=== PATIENT | male | born 1985 | race African-American/Black ===

== ENCOUNTER 2019-02-27 03:18 | Emergency (ER) | payer SELFPAY ==
[~2019-02-27] VITALS: Ht 190.5 cm; Wt 95.3 kg
--- OUTSIDE RECORDS SUMMARY | 2019-02-27 03:24 | XMS REPORT ---
Author Author Bernard Adler [facility] Adult Address [address] [place] [address] Care Team Providers Care General Foreman Name Role Phone Bernard Adler Unavailable PROBLEMS Type Condition ICD9-CM Code [id number] Code Onset Dates Condition Status SNOMED Code Problem Post-traumatic stress disorder, unspecified F43.10 Active 06159999 Problem Mental disorder, not otherwise specified F99 Active 22836061 Problem Depression, major, severe recurrence F33.2 Active 23060106 ALLERGIES No Information ENCOUNTERS Encounter Location Date Diagnosis [facility] Adult [address] [place] [address] [phone] February, [facility] Adult [address] [place] [address] [phone] February, [facility] Adult [address] [place] [address] [phone] Jan, [facility] Adult [address] [place] [address] [phone] Jan, [facility] Adult [address] [place] [address] [phone] Dec, [facility] Adult [address] [place] [address] [phone] Dec, [employer] 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 [address] [place] [phone] Dec, Mental disorder, not otherwise specified F99 Intake Services [address] [place] [phone] Dec, Post-traumatic stress disorder, unspecified F43.10 and Major depressive disorder, recurrent episode, severe with anxious distress F33.2 [employer] 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 [address] [place] [phone] Dec, Mental disorder, not otherwise specified F99 [employer] 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 [address] [place] [phone] Dec, [employer] 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 [address] [place] [phone] Dec, IMMUNIZATIONS No Known Immunizations SOCIAL HISTORY Never Assessed REASON FOR VISIT Closing CPRP Referral, Client is moving out of town. CPRP Referral will be closed PLAN OF CARE VITAL SIGNS MEDICATIONS Unknown Medications RESULTS No Results PROCEDURES No Known procedures INSTRUCTIONS MEDICATIONS ADMINISTERED No Known Medications MEDICAL (GENERAL) HISTORY Type Description Date Hospitalization History Psychiatric: [facility]- anxiety and psychosis 12/2017 Hospitalization History Medical: none reported
--- OUTSIDE RECORDS SUMMARY | 2019-02-27 03:24 | XMS REPORT ---
Author Author Zaynab Sullivan [facility] Adult Address [address], [place] [phone] Care Team Providers Care Excelsior Cutter Name Role Phone Zaynab Sullivan Unavailable PROBLEMS ALLERGIES No Information ENCOUNTERS IMMUNIZATIONS No Known Immunizations SOCIAL HISTORY No smoking Hx information available REASON FOR VISIT PLAN OF CARE VITAL SIGNS MEDICATIONS Unknown Medications RESULTS No Results PROCEDURES No Known procedures INSTRUCTIONS MEDICATIONS ADMINISTERED No Known Medications MEDICAL (GENERAL) HISTORY
--- OUTSIDE RECORDS SUMMARY | 2019-02-27 03:24 | XMS REPORT ---
Author Author Bernard Adler Organization [facility] Adult Address [address] [place] [address] Care Team Providers Care General Farm Hand Name Role Phone Bernard Adler Unavailable PROBLEMS Type Condition ICD9-CM Code [id number] Code Onset Dates Condition Status SNOMED Code Problem Post-traumatic stress disorder, unspecified F43.10 Active 31696005 Problem Depression, major, severe recurrence F33.2 Active 75158354 Problem Mental disorder, not otherwise specified F99 Active 84263155 ALLERGIES No Information ENCOUNTERS Encounter Location Date Diagnosis [facility] Adult [address] [place] [phone] Jan, Psychiatric Services [address] [place] [address] [id number] [phone] Jan, [facility] Adult [address] [place] [phone] Jan, [facility] Adult [address] [place] [address] [phone] Dec, [facility] Adult [address] [place] [address] [phone] Dec, 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 [address] [place] [phone] Dec, Mental disorder, not otherwise specified F99 Intake Services [address] [place] [phone] Dec, Post-traumatic stress disorder, unspecified F43.10 and Major depressive disorder, recurrent episode, severe with anxious distress F33.[address] 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 [address] [place] [phone] Dec, Mental disorder, not otherwise specified F99 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 [address] [place] [phone] Dec, 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 [address] [place] [phone] Dec, IMMUNIZATIONS No Known Immunizations SOCIAL HISTORY Never Assessed REASON FOR VISIT Outreach PLAN OF CARE VITAL SIGNS MEDICATIONS Unknown Medications RESULTS No Results PROCEDURES No Known procedures INSTRUCTIONS MEDICATIONS ADMINISTERED No Known Medications MEDICAL (GENERAL) HISTORY Type Description Date Hospitalization History Psychiatric: [facility]- anxiety and psychosis 12/2017 Hospitalization History Medical: none reported
--- OUTSIDE RECORDS SUMMARY | 2019-02-27 03:24 | XMS REPORT ---
Author Author Bari Lam Organization [facility] Address [address] [place] [address] [phone] Care Team Providers Care Hr Payroll Coordinator Name Role Phone Bari Lam Unavailable PROBLEMS Type Condition ICD9-CM Code VFO96-RB Code Onset Dates Condition Status SNOMED Code Problem Mental disorder, not otherwise specified F99 Active 34690104 ALLERGIES No Information ENCOUNTERS Encounter Location Date Diagnosis [facility] Services [address] [place] [address] [id number] [phone] Jan, [facility] Adult [address] [place] [address] [phone] Dec, [facility] Adult [address] [place] [address] [phone] Dec, [facility] [address] [place] [phone] Dec, Mental disorder, not otherwise specified F99 Intake Services [address] [place] [phone] Dec, [facility] [address] [place] [phone] Dec, Mental disorder, not otherwise specified F99 [facility] [address] [place] [phone] Dec, [facility] [address] [place] [phone] Dec, IMMUNIZATIONS No Known Immunizations SOCIAL HISTORY Never Assessed REASON FOR VISIT Case Management-[facility] Hospital Discharge Follow-Up REFERRAL PLAN OF CARE Activity Details Follow Up 1 Week Reason: VITAL SIGNS MEDICATIONS Unknown Medications RESULTS No Results PROCEDURES Procedure Date Ordered Result Body Site CASE MNMT-PARAPROFESS IND 15 MIN December 29, 2017 INSTRUCTIONS MEDICATIONS ADMINISTERED No Known Medications MEDICAL (GENERAL) HISTORY Type Description Date Hospitalization History Psychiatric: When? How many days? Reason? Hospitalization History Medical: When? How many days? Reason?
--- OUTSIDE RECORDS SUMMARY | 2019-02-27 03:25 | XMS REPORT ---
Author Author Bernadine Millard Organization [facility] Address [address] [place] [address] [phone] Care Team Providers Care Pre School Teacher Name Role Phone Bernadine Millard Unavailable PROBLEMS Type Condition ICD9-CM Code [id number] Code Onset Dates Condition Status SNOMED Code Problem Post-traumatic stress disorder, unspecified F43.10 Active 92819195 Problem Depression, major, severe recurrence F33.2 Active 36444462 Problem Mental disorder, not otherwise specified F99 Active 16603914 ALLERGIES No Information ENCOUNTERS Encounter Location Date Diagnosis [facility] Adult [address] [place] [phone] Jan, [facility] [address] [place] [address] [id number] [phone] Jan, [facility] Adult [address] [place] [address] [phone] Jan, [facility] Adult [address] [place] [address] [phone] Dec, [facility] Adult [address] [place] [address] [phone] Dec, Renewals Manager [address] [place] [phone] Dec, Mental disorder, not otherwise specified F99 Intake Services [address] [place] [phone] Dec, Post-traumatic stress disorder, unspecified F43.10 and Major depressive disorder, recurrent episode, severe with anxious distress F33.2 Renewals Manager [address] [place] [phone] Dec, Mental disorder, not otherwise specified F99 Renewals Manager [address] [place] [phone] Dec, Renewals Manager [address] [place] [phone] Dec, IMMUNIZATIONS No Known Immunizations SOCIAL HISTORY Never Assessed REASON FOR VISIT intake into [facility]- 2:30-3:30 pm - (hospital discharge)- face to face intervention PLAN OF CARE Activity Details Follow Up prn Reason: VITAL SIGNS MEDICATIONS Unknown Medications RESULTS No Results PROCEDURES Procedure Date Ordered Result Body Site BEHAVIORAL HEALTH ASSESSMENT January 03, 2018 INSTRUCTIONS MEDICATIONS ADMINISTERED No Known Medications MEDICAL (GENERAL) HISTORY Type Description Date Hospitalization History [facility]iatric[facility]- anxiety and psychosis 12/2017 Hospitalization History Medical: none reported
--- OUTSIDE RECORDS SUMMARY | 2019-02-27 03:25 | XMS REPORT ---
Author Author Bernard Adler Organization [facility] Adult Address [address] [place] [address] Care Team Providers Care Sole Molder Name Role Phone Bernard Adler Unavailable PROBLEMS Type Condition ICD9-CM Code KEA73-EA Code Onset Dates Condition Status SNOMED Code Problem Post-traumatic stress disorder, unspecified F43.10 Active 69031253 Problem Mental disorder, not otherwise specified F99 Active 64325374 Problem Depression, major, severe recurrence F33.2 Active 39218094 ALLERGIES No Information ENCOUNTERS Encounter Location Date Diagnosis [facility] Adult [address] [place] [phone] Jan, [facility] Adult [address] [place] [address] [phone] Jan, [facility] Adult [address] [place] [address] [phone] Dec, [facility] Adult [address] [place] [address] [phone] Dec, Screening Specialist [address] [place] [phone] Dec, Mental disorder, not otherwise specified F99 Intake Services [address] [place] [phone] Dec, Post-traumatic stress disorder, unspecified F43.10 and Major depressive disorder, recurrent episode, severe with anxious distress F33.2 Screening Specialist [address] [place] [phone] Dec, Mental disorder, not otherwise specified F99 Screening Specialist [address] [place] [phone] Dec, Screening Specialist [address] [place] [phone] Dec, IMMUNIZATIONS No Known Immunizations SOCIAL HISTORY Never Assessed REASON FOR VISIT Outreach PLAN OF CARE VITAL SIGNS MEDICATIONS Unknown Medications RESULTS No Results PROCEDURES No Known procedures INSTRUCTIONS MEDICATIONS ADMINISTERED No Known Medications MEDICAL (GENERAL) HISTORY Type Description Date Hospitalization History Psychiatric: [facility] Psychiatric [facility]- anxiety and psychosis 12/2017 Hospitalization History Medical: none reported
--- OUTSIDE RECORDS SUMMARY | 2019-02-27 03:25 | XMS REPORT ---
Author Author Bari Lam Organization [facility] Address [address] [place] [address] [phone] Care Team Providers Care District Plant Supervisor Name Role Phone Bari Lam Unavailable PROBLEMS Type Condition ICD9-CM Code QFV11-DW Code Onset Dates Condition Status SNOMED Code Problem Mental disorder, not otherwise specified F99 Active 82874068 ALLERGIES No Information ENCOUNTERS Encounter Location Date Diagnosis [facility] [address] [place] [address] [id number], [place] [phone] Jan, [facility] Adult [address] [place] [address] [phone] Dec, [facility] Adult [address] [place] [place] [address] [phone] Dec, [facility] [address] [place] [place] [phone] Dec, Mental disorder, not otherwise specified F99 Intake Services [address] [place] [phone] Dec, [facility] [address] [place] [place] [phone] Dec, Mental disorder, not otherwise specified F99 [facility] [address] [place] [place] [phone] Dec, [facility] [address] [place] [place] [phone] Dec, IMMUNIZATIONS No Known Immunizations SOCIAL HISTORY Never Assessed REASON FOR VISIT Case Management-[facility] Hospital Discharge Follow-Up REFERRAL PLAN OF CARE Activity Details Follow Up 1 day Reason: VITAL SIGNS MEDICATIONS Unknown Medications RESULTS No Results PROCEDURES Procedure Date Ordered Result Body Site CASE MNMT-PARAPROFESS IND 15 MIN December 27, 2017 INSTRUCTIONS MEDICATIONS ADMINISTERED No Known Medications MEDICAL (GENERAL) HISTORY Type Description Date Hospitalization History Psychiatric: When? How many days? Reason? Hospitalization History Medical: When? How many days? Reason?
[2019-02-27 05:56] LABS: AMPHETAMINE SCREEN, URINE NEGATIVE (NEGATIVE); BARBITURATE SCREEN URINE NEGATIVE (NEGATIVE); BENZODIAZEPINES SCREEN URINE NEGATIVE (NEGATIVE); CANNABINOID SCREEN, URINE POSITIVE (NEGATIVE); COCAINE SCREEN URINE NEGATIVE (NEGATIVE); METHADONE STAT NEGATIVE (NEGATIVE); METHAMPHETAMINE SCREEN URINE S NEGATIVE (NEGATIVE); OPIATE SCREEN URINE NEGATIVE (NEGATIVE); OXYCODONE STAT NEGATIVE (NEGATIVE); PROPOXYPHENE STAT NEGATIVE (NEGATIVE); TRICYCLIC ANTIDEPRESSANTS SCRE NEGATIVE (NEGATIVE)
[2019-02-27] MEDS ORDERED: HYDR-700 PO (06:26)
--- NOTE | 2019-02-27 06:26 | ED Psychosocial ---
General Chief Complaint: Psych/Social Disorder Stated Complaint: SEVERE ANXIETY, PARANOID Nursing Triage Note: Pt amb to room #8 w/o difficulty. a&ox4. c/o anxiety and paranoia. Reports to have recently moved to this area from [place] for "a new start." Reports @ approx 0145 this am, he felt as though he was being followed on [place] by a " gang" that is trying to kill him. Reports to be fearful for his wellbeing and his life. Pt states, "I don't know if this is real life or if im just imagining it." Reports racing thoughts. Denies suicidal ideations or attempts. Source: patient Exam Limitations: no limitations History of Present Illness Date Seen by Provider: February 27, 2019 Time Seen by Provider: 03:23 Initial Comments This 33-year-old man presents to the emergency room with anxiousness and paranoia. He believes members of a gaining are watching him and targeting him. He has received no specific threats. He is recently moved here from [place] to be with his father who is in a skilled nursing. He reports never having this type of paranoia in the past. He cites depression as a [facility] diagnosis. He takes Prozac for that. He started taking the medication about 5-6 months ago. He occasionally drinks alcohol. His last drink was a day ago. He last used marijuana yesterday. Allergies and Home Medications Home Medications Hydroxyzine HCl 25 Mg Tablet, 25 MG PO TID PRN for ANXIETY Prescribed by: JUAN WELDON on 02/27/19 0626 Patient Home Medication List Home Medication List Reviewed: Yes Review of Systems Constitutional: no symptoms reported EENTM: no symptoms reported Respiratory: no symptoms reported Cardiovascular: no symptoms reported Gastrointestinal: no symptoms reported Genitourinary: no symptoms reported Musculoskeletal: no symptoms reported Skin: no symptoms reported Psychiatric/Neurological: See HPI Past Fvsosxf-Iihsht-Dkvhsg Hx Patient Social History Alcohol Use: Rarely Uses Number of Drinks Today: 0 Recreational Drug Use: Yes Drug of Choice: thc Smoking Status: Current Everyday Smoker Type Used: Cigarettes 2nd Hand Smoke Exposure: Yes Recent Foreign Travel: No Contact w/Someone Who Travel: No Recent Infectious Disease Expo: No Recent Hopitalizations: No Seasonal Allergies Seasonal Allergies: No Past Medical History Surgeries: No Respiratory: No Cardiac: No Neurological: No Genitourinary: No Gastrointestinal: No Musculoskeletal: No Endocrine: No HEENT: No Cancer: No Psychosocial: Yes Depression Integumentary: No Blood Disorders: No Physical Exam Vital Signs - First Documented 02/27/19 03:29 Temp 98.4 Pulse 100 Resp 18 B/P (MAP) 145/81 (102) Pulse Ox 98 O2 Delivery Room Air Capillary Refill : Less Than 3 Seconds Height, Weight, BMI Height: 6'3.00" Weight: 210lbs. oz. 95.696557lm; BMI Method:Stated General Appearance: WD/WN, no apparent distress HEENT: PERRL/EOMI, normal ENT inspection, pharynx normal Neck: normal inspection Respiratory: lungs clear, normal breath sounds, no respiratory distress, no accessory muscle use Cardiovascular: regular rate, rhythm, no edema, no murmur Extremities: normal inspection, no pedal edema Neurologic/Psychiatric: roller gold leaf II-XII nml as tested, no motor/sensory deficits, alert, oriented x 3, other (paranoid thoughts) Appearance/Memory: appropriate appearance Behavior/Eye Contact: cooperative, good eye contact Skin: normal color, warm/dry Progress/Results/Core Measures Results/Orders Lab Results Laboratory Tests Test 02/27/19 05:38 Range/Units Urine Opiates Screen NEGATIVE NEGATIVE Urine Oxycodone Screen NEGATIVE NEGATIVE Urine Methadone Screen NEGATIVE NEGATIVE Urine Propoxyphene Screen NEGATIVE NEGATIVE Urine Barbiturates Screen NEGATIVE NEGATIVE Ur Tricyclic Antidepressants Screen NEGATIVE NEGATIVE Urine Phencyclidine Screen NEGATIVE NEGATIVE Urine Amphetamines Screen NEGATIVE NEGATIVE Urine Methamphetamines Screen NEGATIVE NEGATIVE Urine Benzodiazepines Screen NEGATIVE NEGATIVE Urine Cocaine Screen NEGATIVE NEGATIVE Urine Cannabinoids Screen POSITIVE H NEGATIVE My Orders Orders - JUAN RANDOLPH MD Drug Screen Stat (Urine) (02/27/19 03:23) Vital Signs/I&O 02/27/19 02/27/19 03:29 06:37 Temp 98.4 Pulse 100 85 Resp 18 16 B/P (MAP) 145/81 (102) 170/73 (105) Pulse Ox 98 100 O2 Delivery Room Air Room Air Blood Pressure Mean: 102 Departure Impression Primary Impression: Paranoia Additional Impressions: Depression Qualified Codes: F32.9 - Major depressive disorder, single episode, unspecified Marijuana use Disposition: 01 HOME, SELF-CARE Condition: Stable Departure-Patient Inst. Patient Instructions: Depression Add. Discharge Instructions: For emergent mental health issues you may call the Save Line at [phone] ( [phone]). There are several resources you may use for behavioral health including [facility] at [phone]. [facility] also has behavioral health services and medical services. You may contact them at [phone]. Use hydroxyzine as prescribed for more intense episodes of anxiety. You may return to the ER if you have worsening symptoms. Please contact law-enforcement if you feel threatened by other individuals. All discharge instructions reviewed with patient and/or family. Voiced understanding. Scripts Hydroxyzine HCl (Hydroxyzine HCl) 25 Mg Tablet 25 MG PO TID PRN for ANXIETY, #10 TAB Prov: JUAN RANDOPLH MD 02/27/19 JUAN RANDOLPH MD February 27, 2019 06:25
[2019-02-27 06:37] VITALS: BP 170/73
== END 2019-02-27 06:37 | disposition home or self-care (01) ==
LOC: ER 03:22
DX: F22 Delusional disorders (principal); F32.9 Major depressive disorder, single episode, unspecified; F41.9 Anxiety disorder, unspecified; F12.10 Cannabis abuse, uncomplicated; F17.210 Nicotine dependence, cigarettes, uncomplicated
CPT/HCPCS: 80306; 99283

== ENCOUNTER 2019-03-12 13:50 | Emergency (ER) | payer SELFPAY ==
[~2019-03-12] VITALS: Ht 188 cm; Wt 97.1 kg
[~2019-03-12 13:50] MED LIST: HYDR-700 PO
--- NOTE | 2019-03-12 15:11 | Diagnostic Imaging Report ---
INDICATION: Injury and pain to the right ankle. TIME OF EXAM: 2:54 p.m. FINDINGS: Three views of right ankle were obtained. Alignment is normal. Ankle mortise is well-maintained. Talar dome is smooth. No fracture or dislocation is seen. There appears to be some soft tissue swelling medially. IMPRESSION: Medial soft tissue swelling. No acute bony abnormality is detected. Dictated by: Dictated on workstation # [id number]
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
--- NOTE | 2019-03-12 15:28 | Diagnostic Imaging Report ---
PROCEDURE: US left lower extremity venous. TECHNIQUE: Multiple real-time grayscale images were obtained over the left lower extremity in various projections. Additional duplex Doppler and color Doppler images were also obtained. INDICATION: Redness and warmth of the left lateral leg. FINDINGS: There is no evidence of left lower extremity DVT. Left lower extremity deep venous system shows normal compressibility with normal response to augmentation and Valsalva. No fluid collection or mass is seen. IMPRESSION: No evidence of left lower extremity DVT. Dictated by: Dictated on workstation # [id number]
[2019-03-12] MEDS ORDERED: ACHD5005 PO (16:01)
[2019-03-12 16:10] VITALS: BP 142/69
--- OUTSIDE RECORDS SUMMARY | 2019-03-12 16:43 | XMS REPORT | Continuity of Care Document ---
Author Organization Unknown Address Unknown Allergies There is no data. Medications There is no data. Problems Date Dx Coded Attending Type Code Diagnosis Diagnosed By 03/01/2019 TOMASA LERNER, JUAN Akers Ot F12.10 CANNABIS ABUSE, UNCOMPLICATED 03/01/2019 TOMASA LERNER, JUAN Akers Ot F17.210 NICOTINE DEPENDENCE, CIGARETTES, UNCOMPL 03/01/2019 TOMASA LERNER, JUAN Akers Ot F22 DELUSIONAL DISORDERS 03/01/2019 TOMASA LERNER, JUAN Akers Ot F32.9 MAJOR DEPRESSIVE DISORDER, SINGLE EPISOD 03/01/2019 TOMASA LERNER, JUAN Akers Ot F41.9 ANXIETY DISORDER, UNSPECIFIED Procedures There is no data. Results Test Result Range Urine drug screening test - 02/27/19 05:38 Urine phencyclidine detection by screening method NEGATIVE NEGATIVE Urine benzodiazepines detection by screening method NEGATIVE NEGATIVE Urine cocaine detection NEGATIVE NEGATIVE Urine amphetamines detection by screening method NEGATIVE NEGATIVE Urine methamphetamine detection by screening method NEGATIVE NEGATIVE Urine cannabinoids detection by screening method POSITIVE NEGATIVE Urine opiates detection by screening method NEGATIVE NEGATIVE Urine barbiturates detection NEGATIVE NEGATIVE Screening urine tricyclic antidepressants detection NEGATIVE NEGATIVE Urine methadone detection by screening method NEGATIVE NEGATIVE Urine oxycodone detection NEGATIVE NEGATIVE Urine propoxyphene detection NEGATIVE NEGATIVE Encounters ACCT No. Visit Date/Time Discharge Status Pt. Type Provider Facility Loc./Unit Complaint [id number] 02/27/2019 03:22:00 02/27/2019 06:37:00 DIS Outpatient TOMASA LERNER, JUAN Akers [facility] [address] ER SEVERE ANXIETY, PARANOID
== END 2019-03-12 16:11 | disposition home or self-care (01) ==
LOC: EDUNIT# 13:50 → ER 13:52
DX: S93.401A Sprain of unspecified ligament of right ankle, initial encounter (principal); I80.3 Phlebitis and thrombophlebitis of lower extremities, unspecified; F32.9 Major depressive disorder, single episode, unspecified; F17.210 Nicotine dependence, cigarettes, uncomplicated; V18.4XXA Pedal cycle driver injured in noncollision transport accident in traffic accident, initial encounter; W22.09XA Striking against other stationary object, initial encounter
CPT/HCPCS: 73610

== ENCOUNTER 2019-03-14 23:25 | Emergency (ER) | payer SELFPAY ==
[~2019-03-14] VITALS: Ht 188 cm; Wt 104.3 kg
[~2019-03-14 23:25] MED LIST changes: +ACHD5005 PO
--- OUTSIDE RECORDS SUMMARY | 2019-03-14 23:31 | XMS REPORT | Continuity of Care Document ---
Author Organization Unknown Address Unknown Allergies There is no data. Medications There is no data. Problems Date Dx Coded Attending Type Code Diagnosis Diagnosed By 02/27/2019 TOMASA LERNER, JUAN T Ot F12.10 CANNABIS ABUSE, UNCOMPLICATED 02/27/2019 TOMASA LERNER, JUAN T Ot F17.210 NICOTINE DEPENDENCE, CIGARETTES, UNCOMPL 02/27/2019 TOMASA LERNER, JUAN Akers Ot F22 DELUSIONAL DISORDERS 02/27/2019 TOMASA LERNER, JUAN T Ot F32.9 MAJOR DEPRESSIVE DISORDER, SINGLE EPISOD 02/27/2019 JUAN RANDOLPH MD T Ot F41.9 ANXIETY DISORDER, UNSPECIFIED 03/01/2019 TOMASA LERNER, JUAN T Ot F12.10 CANNABIS ABUSE, UNCOMPLICATED 03/01/2019 TOMASA LERNER, JUAN T Ot F17.210 NICOTINE DEPENDENCE, CIGARETTES, UNCOMPL 03/01/2019 TOMASA LERNER, JUAN T Ot F22 DELUSIONAL DISORDERS 03/01/2019 TOMASA LERNER, JUAN T Ot F32.9 MAJOR DEPRESSIVE DISORDER, SINGLE EPISOD 03/01/2019 JUAN RANDOLPH MD T Ot F41.9 ANXIETY DISORDER, UNSPECIFIED Procedures There [...] Status Pt. Type Provider Facility Loc./Unit Complaint [id number] 03/12/2019 13:52:00 03/12/2019 16:11:00 DIS Emergency SOPHIE SZYMANSKI [facility] ER ANKLE SWELLING [id number] 02/27/2019 03:22:00 02/27/2019 06:37:00 DIS Emergency TOMASA LERNER, JUAN Akers [facility] ER SEVERE ANXIETY, PARANOID
[2019-03-14 23:59] LABS: BASOPHILS % (AUTO) 0 % (0-10); BILIRUBIN,URINE NEGATIVE (NEGATIVE); CLARITY,URINE CLEAR; COLOR,URINE YELLOW; EOSINOPHILS % (AUTO) 0 % (0-10); GLUCOSE, URINE (UA) NEGATIVE (NEGATIVE); HEMATOCRIT 39 % (40-54); HEMOGLOBIN 13.8 G/DL (13.3-17.7); KETONES,URINE NEGATIVE (NEGATIVE); LEUKOCYTE ESTERASE ,URINE 1+ (NEGATIVE); LYMPHOCYTES # (AUTO) 1.2 X 10^3 (1.0-4.0); LYMPHOCYTES % (AUTO) 23 % (12-44); MEAN CORPUSCULAR HEMOGLOBIN 33 PG (25-34); MEAN CORPUSCULAR HGB CONC 35 G/DL (32-36); MEAN CORPUSCULAR VOLUME 94 FL (80-99); MEAN PLATELET VOLUME 9.2 FL (7.4-10.4); MONOCYTES # (AUTO) 0.3 X 10^3 (0.0-1.0); MONOCYTES % (AUTO) 5 % (0-12); NEUTROPHILS # (AUTO) 3.7 X 10^3 (1.8-7.8); NEUTROPHILS % (AUTO) 71 % (42-75); NITRITE,URINE NEGATIVE (NEGATIVE); PH,URINE 5 (5-9); PLATELET COUNT 194 10^3/uL (130-400); PROTEIN,URINE NEGATIVE (NEGATIVE); RED CELL DISTRIBUTION WIDTH 14.4 % (10.0-14.5); UROBILINOGEN,URINE NORMAL (NORMAL); WHITE BLOOD COUNT 5.2 10^3/uL (4.3-11.0)
[2019-03-15] MEDS ORDERED: OLANZapine 5 MG ODT (ZyPREXA ZYDIS) PO ONE
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
[2019-03-15 00:10] LABS: BACTERIA,URINE NEGATIVE /HPF; WBC,URINE 0-2 /HPF
[2019-03-15 00:18] LABS: AMPHETAMINE SCREEN, URINE NEGATIVE (NEGATIVE); BARBITURATE SCREEN URINE NEGATIVE (NEGATIVE); BENZODIAZEPINES SCREEN URINE NEGATIVE (NEGATIVE); CANNABINOID SCREEN, URINE POSITIVE (NEGATIVE); COCAINE SCREEN URINE NEGATIVE (NEGATIVE); METHADONE STAT NEGATIVE (NEGATIVE); METHAMPHETAMINE SCREEN URINE S NEGATIVE (NEGATIVE); OPIATE SCREEN URINE NEGATIVE (NEGATIVE); OXYCODONE STAT NEGATIVE (NEGATIVE); PROPOXYPHENE STAT NEGATIVE (NEGATIVE); TRICYCLIC ANTIDEPRESSANTS SCRE NEGATIVE (NEGATIVE)
[2019-03-15 00:21] LABS: ACETAMINOPHEN < 10 UG/ML (10-30); ALANINE AMINOTRANSFERASE 14 U/L (0-55); ALBUMIN 4.3 GM/DL (3.2-4.5); ALKALINE PHOSPHATASE 72 U/L (40-136); BILIRUBIN,TOTAL 0.7 MG/DL (0.1-1.0); BUN/CREATININE RATIO 8; CALCIUM 9.6 MG/DL (8.5-10.1); CARBON DIOXIDE 17 MMOL/L (21-32); CHLORIDE 105 MMOL/L (98-107); CREATININE SERUM 1.31 MG/DL (0.60-1.30); GFR ESTIMATED > 60; GLUCOSE 92 MG/DL (70-105); POTASSIUM 3.7 MMOL/L (3.6-5.0); SALICYLATE < 5.0 MG/DL (5.0-20.0); SODIUM 137 MMOL/L (135-145); TOTAL PROTEIN 8.4 GM/DL (6.4-8.2)
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
[2019-03-15 01:40] VITALS: BP 116/77
[2019-03-15 02:59] VITALS: BP 119/76
--- NOTE | 2019-03-15 03:01 | NUR ---
knife returned to pt.
== END 2019-03-15 02:59 | disposition home or self-care (01) ==
LOC: EDUNIT# 23:25 → ER 23:28
DX: F41.9 Anxiety disorder, unspecified (principal); F10.10 Alcohol abuse, uncomplicated; F19.10 Other psychoactive substance abuse, uncomplicated; F22 Delusional disorders; F32.9 Major depressive disorder, single episode, unspecified; F12.10 Cannabis abuse, uncomplicated; F17.210 Nicotine dependence, cigarettes, uncomplicated
CPT/HCPCS: 36415; 80053; 80306; 80320; 80329; 81000; 84443; 85025; 93005; 93041